=== PATIENT | female | born 1950 | race Caucasian/White ===

== ENCOUNTER 2025-04-18 16:49 | Observation (INO) | payer MEDICARE, BC ==
[~2025-04-18] VITALS: Ht 154.9 cm; Wt 73.6 kg
[2025-04-18 17:20] LABS: BASOPHILS ABSOLUTE AUTO 0.05 K/mm3 (0.00-0.23); BASOPHILS PERCENT AUTO 1 % (0-2); EOSINOPHILS ABSOLUTE AUTO 0.22 K/mm3 (0.00-0.68); EOSINOPHILS PERCENT AUTO 3 % (0-6); Hematocrit 36.1 % (33.0-51.0); Hemoglobin 11.8 g/dL (11.5-16.0); IMMATURE GRAN ABSOLUTE AUTO 0.02 K/mm3 (0.00-0.10); IMMATURE GRAN PERCENT AUTO 0 % (0-1); LYMPHOCYTES ABSOLUTE AUTO 1.88 K/mm3 (0.84-5.20); LYMPHOCYTES PERCENT AUTO 28 % (21-46); MONOCYTES ABSOLUTE AUTO 0.75 K/mm3 (0.16-1.47); MONOCYTES PERCENT AUTO 11 % (4-13); Mean Corpuscular HGB Conc 32.7 g/dL (31.5-36.5); Mean Corpuscular Volume 92 fL (80-100); NEUTROPHILS ABSOLUTE AUTO 3.73 K/mm3 (1.96-9.15); NEUTROPHILS PERCENT AUTO 56 % (41-73); NRBC ABSOLUTE 0.00 K/mm3 (0.00-0.02); NRBC Auto 0.0 /100 WBC (0.0-0.2); Platelet Count 394 K/mm3 (150-400); RDW Coefficient Variation 12.9 % (11.7-14.2); RDW Standard Deviation 42.7 fL (35.1-46.3)
[2025-04-18 17:39] LABS: Alanine Aminotransfer (ALT/SGP 34.0 U/L (12-78); Albumin, Blood 3.8 g/dL (3.4-5.0); Albumin/Globulin Ratio 1.0 (0.8-1.8); Anion Gap 5.0 mmol/L (3-11); Aspartate Aminotrans (AST/SGOT 31.0 U/L (12-37); Bilirubin, Total 0.3 mg/dL (0.1-1.0); Blood Urea Nitrogen 13.0 mg/dL (8-24); CO2, Blood 25.0 mmol/L (21-32); Calcium, Blood 9.5 mg/dL (8.5-10.1); Chloride, Blood 110.0 mmol/L (98-108); Creatinine, Blood 0.58 mg/dL (0.40-1.00); Globulin, Blood 3.7 g/dL (2.2-4.0); Glucose, Blood 100.0 mg/dL (70-99); Potassium, Blood 4.1 mmol/L (3.5-5.5); Sodium, Blood 136.0 mmol/L (136-145); Total Protein, Blood 7.5 g/dL (6.4-8.2)
[2025-04-18 20:59] LABS: Magnesium, Blood 2.1 mg/dL (1.6-2.4)
[2025-04-18] MEDS ORDERED: ATENOLOL25 MG PO (21:10)
[2025-04-18] MEDS ORDERED: LIPITOR80 MG PO (21:10)
[2025-04-18] MEDS ORDERED: EZETIMIBE10 M6 PO (21:10)
[2025-04-18] MEDS ORDERED: AMLODIPINE BESYL5 MG PO (21:10)
[2025-04-18] MEDS ORDERED: FLUO10 PO (21:11)
[2025-04-18] MEDS ORDERED: GEMTESA75 MG PO (21:11)
[2025-04-18] MEDS ORDERED: PANTOPRAZOLE SO40 M2 PO (21:11)
[2025-04-18] MEDS ORDERED: WEGOVY0.25 MG/0. SQ (21:11)
[2025-04-18 22:53] LABS: CHOL/HDL RATIO 1.6; Cholesterol 140 mg/dL (50-200); HDL Cholesterol 88 mg/dL (>39); LDL/HDL RATIO 0.5; Low Density Lipoprotein Chol 40 mg/dL (0-110); Phosphorus, Blood 3.0 mg/dL (2.5-4.9); Triglycerides 62 mg/dL (30-160); Very Low Density Lipoprot Chol 12 mg/dL (6-32)
[2025-04-18 22:55] LABS: Prothrombin Time Results 10.7 Sec (9.7-11.5)
[2025-04-18 23:04] LABS: Thyroid Stimulating Hormone 2.620 uIU/mL (0.360-4.800)
[2025-04-19] MEDS ORDERED: Flonase 0.05% N16 GM (00:49)
[2025-04-19] MEDS ORDERED: Aspir 8181 MG PO (00:50)
[2025-04-19 00:58] VITALS: BP 181/88
--- NOTE | 2025-04-19 04:31 | NUR ---
NOC SUMMARY- PT ARRIVED TO ROOM IN NO DISTRESS. PT IS AMBULATORY WITHOUT ISSUE. PT VOIDING WELL. PT REPORTS FACIAL NUMBNESS IS IMPROVING. PT DENIES ANY OTHER ISSUES. PT RESTING COMFORTABLY. CALL LIGHT IN [facility]RE[facility].
[2025-04-19 05:05] VITALS: BP 147/62
[2025-04-19] MEDS ORDERED: Enoxaparin 40 MG/0.4 ML SYR SC SCH (09:00)
[2025-04-19 09:56] VITALS: BP 133/71
[2025-04-19] MEDS ORDERED: PRED20 PO (16:20)
--- NOTE | 2025-04-19 16:55 | NUR ---
DISCHARGE SUMMARY PT DISCHARGED HOME TODAY. IV REMOVED AND SITE APPEARS WNL. TELE REMOVED/CLEANED AND SENT BACK TO PCU. HARD SCRIPT FOR PREDNISONE SENT WITH PT AND FAXED OVER TO GEN. DISCHARGE PACKET REVIEWED WITH PT. PT REQUESTED TO AMBULATE INDEPENDENLTY WITH FRIEND TO CAR. PT ESCORTED TO [facility].
== END 2025-04-19 16:31 | disposition home or self-care (01) ==
LOC: ER 16:49 → MEDS 16:50 → ER 04-19 00:30 → MEDS 04-19 00:43
PROVIDERS: Emergency Medicine; ADMIT Family Medicine
DX: G51.0 Bell's palsy (principal); K21.9 Gastro-esophageal reflux disease without esophagitis; E78.5 Hyperlipidemia, unspecified; I10 Essential (primary) hypertension; Z86.73 Personal history of transient ischemic attack (TIA), and cerebral infarction without residual deficits; Z79.82 Long term (current) use of aspirin; Z79.899 Other long term (current) drug therapy
CPT/HCPCS: 36415; 70450; 70496; 70498; 70551; 80053; 80061; 83036; 83735; 84100; 84443; 85025; 85610; 85730; 93005; 93010; 93306; 96372; 99285-25; A9270; G0378; J1650; J7512; Q9967